=== PATIENT | female | born 1970 | race Caucasian/White ===

== ENCOUNTER 2020-03-31 18:54 | Emergency (ER) | payer OTHER ==
[~2020-03-31] VITALS: Ht 160 cm; Wt 81.6 kg
[2020-03-31 19:00] VITALS: BP 147/116
[2020-03-31] MEDS ORDERED: KETOROLAC 30 MG/ML VIAL IM ONE (21:50)
[2020-03-31] MEDS ORDERED: ASPIRIN 81 MG TAB.CHEW PO ONE (21:50)
[2020-03-31] MEDS ORDERED: LORazepam 2 MG/ML VIAL IM ONE (21:50)
[2020-03-31 22:59] VITALS: BP 156/90
== END 2020-03-31 22:59 | disposition home or self-care (01) ==
LOC: MED 18:54
DX: R07.9 Chest pain, unspecified (principal); F41.9 Anxiety disorder, unspecified; I10 Essential (primary) hypertension; R73.03 Prediabetes; Z88.4 Allergy status to anesthetic agent
CPT/HCPCS: 93005; 96372; 99284; J1885; J2060